=== PATIENT | male | born 1975 | race Caucasian/White ===

== ENCOUNTER 2021-09-05 16:46 | Outpatient (REF) | payer SELFPAY ==
[2021-09-07 14:27] LABS: COVID-19 RT-PCR UVMMC Result Negative (Negative)
== END 2021-09-05 16:47 | disposition home or self-care (01) ==
LOC: NCHCN 16:46
PROVIDERS: Visit Provider Nurse Practitioner Family
DX: Z20.822 Contact with and (suspected) exposure to COVID-19 (principal)
CPT/HCPCS: U0003

== ENCOUNTER 2022-08-24 16:39 | Outpatient (REF) | payer BC, SELFPAY ==
[2022-08-24 14:48] LABS: Calculated LDL 86 mg/dL (<100); Cholesterol 164 mg/dL (<200); HDL Cholesterol 72 mg/dL (40-60); Triglyceride 34 mg/dL (<150)
== END 2022-08-24 16:40 | disposition home or self-care (01) ==
LOC: NCHCN 16:39
PROVIDERS: Visit Provider Nurse Practitioner Family
DX: Z00.00 Encounter for general adult medical examination without abnormal findings (principal)
CPT/HCPCS: 80061